=== PATIENT | male | born 1985 | race Caucasian/White ===

== ENCOUNTER 2017-04-21 21:24 | Emergency (ER) | payer SELFPAY ==
[~2017-04-21] VITALS: Ht 180.3 cm; Wt 107.0 kg
[~2017-04-21 21:24] MED LIST: BEN50 PO; HYDR-3498 PO; IBUP-1542 PO; [UNRECOGNIZED DRUG - OTHER]
[2017-04-21 21:36] VITALS: Ht 180.3 cm; Wt 107.0 kg
[2017-04-22] MEDS ORDERED: IBUPROFEN 600 MG TAB PO ONE (02:00)
[2017-04-22] MEDS ORDERED: ACETAMINOPHEN 325 MG TAB PO ONE (02:00)
[2017-04-22] MEDS ORDERED: ACET500C5 PO (02:10)
[2017-04-22] MEDS ORDERED: PENI500T PO (02:10)
[2017-04-22] MEDS ORDERED: IBUP-1542 PO (02:10)
--- NOTE | 2017-04-22 02:28 | ERD ---
ER Documentation Chief Complaint Date/Time DATE: 04/22/17 TIME: 02:25 Chief Complaint Sore throat body ache and fever x 2 days HPI 32-year-old male presents here in emergency department for complaints of sore throat and body ache and fever for 2 days. Patient is complaining of pain upon swallowing, throbbing pain, 6/10 scale, accompanied with fever and bodyaches. Patient does not have any stridor or shortness of breath. Patient does not have any sick contacts. Patient did not take any medications to help with symptoms. ROS All systems reviewed and are negative except as per history of present illness. Medications Home Meds Active Scripts Acetaminophen* (Tylophen*) 500 Mg Capsule, 1 CAP PO Q6H Y for PAIN AND OR ELEVATED TEMP, #20 CAP Prov:HORACIO KNIGHT NP 04/22/17 Ibuprofen* (Motrin*) 600 Mg Tab, 600 MG PO Q6H Y for PAIN AND OR ELEVATED TEMP, #30 TAB Prov:HORACIO KNIGHT NP 04/22/17 Penicillin V Potassium* (Penicillin V K*) 500 Mg Tab, 500 MG PO QID for 10 Days , TAB Prov:HORACIO KNIGHT NP 04/22/17 Diphenhydramine Hcl* (Benadryl*) 50 Mg Cap, 50 MG PO Q6 Y for swelling, #30 Prov:CHEN SCOTT NP 06/03/15 Ibuprofen* (Ibuprofen*) 600 Mg Tablet, 600 MG PO Q6, #30 TAB Prov:LESLEE GAMBLE PA-C 04/26/15 Hydrocodone Bit-Acetaminophen* ([place]*) 5-325 Mg Tab, 1 TAB PO Q6 Y for PAIN, # 15 TAB Prov:LESLEE GAMBLE PA-C 04/26/15 Reported Medications [Ampitrexyl] No Conflict Check 08/20/12 Allergies Allergies: Coded Allergies: No Known Allergy (Unverified , 08/20/12) PMhx/Soc History of Surgery: Yes (facial surgery) Anesthesia Reaction: No Hx Neurological Disorder: No Hx Respiratory Disorders: No Hx Cardiac Disorders: No Hx Psychiatric Problems: No Hx Miscellaneous Medical Probl: No Hx Alcohol Use: No Hx Substance Use: No Hx Tobacco Use: No Smoking Status: Never smoker FmHx Family History: No coronary disease, No diabetes, No other Physical Exam Vitals Vital Signs Date Time Temp Pulse Resp B/P Pulse Ox O2 Delivery O2 Flow Rate FiO2 04/22/17 03:14 100.3 95 04/22/17 02:41 102.6 04/22/17 02:07 103.9 04/21/17 21:36 103.8 115 18 130/78 100 Physical Exam GENERAL: The patient is well developed and appropriate for usual state of health, in no apparent distress. CHEST: Clear to auscultation bilaterally. There are no rales, wheezes or rhonchi. HEART: Regular rate and rhythm. No murmurs, clicks, rubs or gallops. No S3 or S4. ABDOMEN: Soft, nontender and nondistended. Good bowel sounds. No rebound or guarding. No gross peritonitis. No gross organomegaly or masses. No Coronel sign or McBurney point tenderness. BACK: No midline or flank tenderness. EXTREMITIES: Equal pulses bilaterally. There is no peripheral clubbing, cyanosis or edema. No focal swelling or erythema. Full range of motion. Grossly neurovascularly intact. NEURO: Alert and oriented. Cranial nerves 2-12 intact. Motor strength in all 4 extremities with 5/5 strength. Sensation grossly intact. Normal speech and gait. SKIN: There is no apparent rash or petechia. The skin is warm and dry. HEMATOLOGIC AND LYMPHATIC: There is no evidence of excessive bruising or lymphedema. No gross cervical, axillary, or inguinal lymphadenopathy. Results 24 hrs Current Medications Medications (Trade) Dose Ordered Sig/Usha Route PRN Reason Start Time Stop Time Status Last Admin Dose Admin Ibuprofen (Motrin) 600 mg ONCE ONCE PO 04/22/17 02:00 04/22/17 02:01 DC 04/22/17 02:04 Acetaminophen (Tylenol Tab) 650 mg ONCE ONCE PO 04/22/17 02:00 04/22/17 02:01 DC 04/22/17 02:04 Patient was given medicines for fever control here in the emergency department. After treatment, patient temperature improved and lower. Patient appears well and is hemodynamically stable. Procedures/MDM Medical decision making: Patient symptoms is likely consistent with acute bacterial pharyngitis, most likely strep throat. Low suspicion for peritonsillar abscess, mononucleosis, no symptoms of epiglottitis, laryngitis. No oral airway obstruction noted. No symptoms of sepsis at this time. Patient appears well and is hemodynamically stable. Patient was given for amoxicillin, ibuprofen, Tylenol, is advised to follow-up with primary care doctor in 2-3 days for reevaluation of symptoms. Patient is advised to do salt water gargles. Patient is advised to return to emergency department for worsening symptoms. Disposition: Home. Stable. Disclaimer: Inadvertent spelling and grammatical errors are likely due to EHR/ dictation software use and do not reflect on the overall quality of patient care. Also, please note that the electronic time recorded on this note does not necessarily reflect the actual time of the patient encounter. Departure Diagnosis: Primary Impression: Strep throat Condition: Stable Patient Instructions: Strep Throat HORACIO KNIGHT NP Apr 22, 2017 02:28
[2017-04-22 03:14] VITALS: PULSE 95; TEMP 100.3
== END 2017-04-22 03:15 | disposition home or self-care (01) ==
LOC: FTE 21:24
DX: J02.0 Streptococcal pharyngitis (principal)
CPT/HCPCS: 99283

== ENCOUNTER 2017-04-28 06:07 | Emergency (ER) | payer SELFPAY ==
[~2017-04-28] VITALS: Ht 177.8 cm; Wt 105.5 kg
[~2017-04-28 06:07] MED LIST changes: +ACET500C5 PO; +PENI500T PO
[2017-04-28 06:13] VITALS: Ht 177.8 cm; Wt 105.5 kg
[2017-04-28] MEDS ORDERED: DIPHENHYDRAMINE 50 MG INJ IM ONE (06:30)
[2017-04-28] MEDS ORDERED: METHYLPREDNISOLONE 125 MG INJ IM ONE (06:30)
[2017-04-28] MEDS ORDERED: BEN25 PO (07:06)
[2017-04-28] MEDS ORDERED: PRED20TA PO (07:06)
--- NOTE | 2017-04-28 07:12 | ERD ---
ER Documentation Chief Complaint Date/Time DATE: 04/28/17 TIME: 07:11 Chief Complaint Pt reports bottom lip swelling 2 hours afer sausage consumption HPI This 32-year-old male complains of swelling on his lower lip for the last 3 hours. He has a history of similar reactions. He states that he is allergic to pork and he ate some sausage yesterday. Denies any fevers, shortness breath , vomiting, abdominal pain. ROS All systems reviewed and are negative except as per history of present illness. Medications Home Meds Active Scripts Diphenhydramine Hcl* (Benadryl*) 25 Mg Cap, 25 MG PO Q6, #15 CAP Prov:STIVEN GARY MD 04/28/17 Prednisone* (Prednisone*) 20 Mg Tab, 60 MG PO DAILY for 3 Days, TAB Prov:STIVEN GARY MD 04/28/17 Acetaminophen* (Tylophen*) 500 Mg Capsule, 1 CAP PO Q6H Y for PAIN AND OR ELEVATED TEMP, #20 CAP Prov:HORACIO KNIGHT NP 04/22/17 Ibuprofen* (Motrin*) 600 Mg Tab, 600 MG PO Q6H Y for PAIN AND OR ELEVATED TEMP, #30 TAB Prov:HORACIO KNIGHT NP 04/22/17 Penicillin V Potassium* (Penicillin V K*) 500 Mg Tab, 500 MG PO QID for 10 Days , TAB Prov:HORACIO KNIGHT NP 04/22/17 Diphenhydramine Hcl* (Benadryl*) 50 Mg Cap, 50 MG PO Q6 Y for swelling, #30 Prov:CHEN SCOTT NP 06/03/15 Ibuprofen* (Ibuprofen*) 600 Mg Tablet, 600 MG PO Q6, #30 TAB Prov:LESLEE GAMBLE PA-C 04/26/15 Hydrocodone Bit-Acetaminophen* ([place]*) 5-325 Mg Tab, 1 TAB PO Q6 Y for PAIN, # 15 TAB Prov:LESLEE GAMBLE PA-C 04/26/15 Reported Medications [Ampitrexyl] No Conflict Check 08/20/12 Allergies Allergies: Uncoded Allergies: PORK (Allergy, Intermediate, swollen oral cavity, 04/28/17) PMhx/Soc Medical and Surgical Hx: pt denies Medical Hx, pt denies Surgical Hx History of Surgery: Yes (facial surgery) Anesthesia Reaction: No Hx Neurological Disorder: No Hx Respiratory Disorders: No Hx Cardiac Disorders: No Hx Psychiatric Problems: No Hx Miscellaneous Medical Probl: No Hx Alcohol Use: No Hx Substance Use: No Hx Tobacco Use: No Smoking Status: Never smoker Physical Exam Vitals Vital Signs Date Time Temp Pulse Resp B/P Pulse Ox O2 Delivery O2 Flow Rate FiO2 04/28/17 06:13 97.2 60 16 121/74 98 Physical Exam Const: [], [id number] per Head: Atraumatic Eyes: Normal Conjunctiva ENT: Normal External Ears, Nose and Mouth. Swelling. Airway intact. Neck: Full range of motion..~ No meningismus. Resp: Clear to auscultation bilaterally Cardio: Regular rate and rhythm, no murmurs Abd: Soft, non tender, non distended. Normal bowel sounds Skin: No petechiae or rashes Back: No midline or flank tenderness Ext: No cyanosis, or edema Neur: Awake and alert Psych: Normal Mood and Affect Results 24 hrs Current Medications Medications (Trade) Dose Ordered Sig/Usha Route PRN Reason Start Time Stop Time Status Last Admin Dose Admin Methylprednisolone Sodium Succinate (Solu-Medrol) 125 mg ONCE ONCE IM 04/28/17 06:30 04/28/17 06:31 DC 04/28/17 06:37 Diphenhydramine HCl (Benadryl) 50 mg ONCE ONCE IM 04/28/17 06:30 04/28/17 06:31 DC 04/28/17 06:37 Procedures/MDM She presents with lower lip swelling, angioedema or allergic reaction without evidence of airway obstruction, and respiratory distress. Is given Solu-Medrol 125 mg IM, Benadryl 25 mg a.m., and ice pack was applied. Patient shows no evidence of decompensation at the ED course and had improved symptoms after observation treatment. Patient was treated with prednisone, Benadryl, instructions for ice at home and avoidance of pork. Is advised to recheck for new or worsening symptoms with primary care doctor. The patient was stable with no new complaints during the ER course. Clinically, there is no current evidence to suggest meningitis, sepsis, acute abdomen, pneumonia, acute coronary syndrome, pulmonary embolism, or any other emergent condition appearing to require further evaluation or hospitalization. The patient should certainly return for any new or worsening symptoms per the aftercare instructions. They should otherwise follow-up with her primary care doctor for reevaluation this week. Departure Diagnosis: Primary Impression: Allergic reaction Encounter type: initial encounter Qualified Code: T78.40XA - Allergic reaction, initial encounter Condition: Stable Patient Instructions: Allergic Reaction, Other (Local) Additional Instructions: randall goyal. Cheque otro vez con marks doctor primario en el proximo saini or regresa para mas o nueva simptomas. STIVEN GARY MD Apr 28, 2017 07:12
== END 2017-04-28 07:55 | disposition home or self-care (01) ==
LOC: FTE 06:07
DX: R60.0 Localized edema (principal)
CPT/HCPCS: 96372; 99284; J1200; J2930